=== PATIENT | male | born 1965 | race African-American/Black ===

== ENCOUNTER 2024-03-28 09:43 | Emergency (ER) | payer OTHER ==
[2024-03-28 09:51] VITALS: BP 125/83; PULSE 73; RESP 18; TEMP 97.9; BMI 24.3
== END 2024-03-28 11:52 | disposition home or self-care (01) ==
LOC: JERFT 09:43
DX: H66.93 Otitis media, unspecified, bilateral (principal); H61.23 Impacted cerumen, bilateral; H92.03 Otalgia, bilateral
CPT/HCPCS: 99283-25